=== PATIENT | male | born 1960 | race Two or more races ===

== ENCOUNTER 2020-02-23 09:18 | Emergency (ER) | payer OTHER ==
[~2020-02-23] VITALS: Ht 177.8 cm; Wt 76.7 kg
[2020-02-23] MEDS ORDERED: NEXIUM 24HR20 MG (09:26)
[2020-02-23] MEDS ORDERED: KETO10TA2 PO (11:30)
== END 2020-02-23 11:34 | disposition home or self-care (01) ==
LOC: ER 09:18
DX: H92.02 Otalgia, left ear (principal); Z03.818 Encounter for observation for suspected exposure to other biological agents ruled out